=== PATIENT | male | born 1955 | race Caucasian/White ===

== ENCOUNTER 2024-04-01 09:53 | Emergency (ER) | payer MEDICARE, OTHER, SELFPAY ==
[2024-04-01 09:56] VITALS: BP 141/81; PULSE 67; RESP 18; TEMP 36.6; O2SAT 94; BMI 33.5
--- NOTE | 2024-04-01 11:09 | ED.EYEPROB ---
HPI - Eye Problem General Date Seen: 04/01/24 Chief complaint: Eye Problems Stated complaint: Cataract burst R eye Time Seen by Provider: 04/01/24 10:35 Source: patient Mode of arrival: ambulatory Limitations: no limitations History of Present Illness HPI Narrative: Patient is a 68-year-old gentleman who at approximately 7:30 a.m. this morning developed visual changes in his right eye, he looked out on the morning son, felt that the eye became blurry. And now he notes that vision no he is able to read through this. Is more blurry than normally almost feels like there is something moving around like a floater or hair within his eye. Does not tell me he has lost any visual of areas such as blackness or anything with this. It just feels like there is something with his eye as he looks around it clearly moves. No pain associated with this, he has never before had this he does not were contacts but he does were glasses there is no chance he got anything in his eye, as he feels that he was fine when he got up. Denies a history of glaucoma, headaches, numbness tingling or weakness or any other symptoms. No history of cardiovascular her previous CVAs. No history of diabetes, no history of high blood pressure. Does have a mild history of reactive airway disease in [facility], and [facility] recommended that he came to the the emergency department to get seen. Thinks it is somewhat improved since this occurred. But only slightly. chief complaint: vision change Onset (ago): hour(s) Onset description: sudden Duration: improved Location: right eye Eye Symptoms: decreased vision and blurry vision Place: home Mechanism: none Severity: moderate Associated symptoms: none Treatments Prior to Arrival: none Related Data Patient tetanus UTD: Yes Home Medications ?Medication ?Instructions ?Recorded ?Confirmed albuterol 04/01/24 montelukast 04/01/24 Allergies Allergy/AdvReac Type Severity Reaction Status Date / Time No Known Drug Allergies Allergy Verified 04/01/24 10:01 Review of Systems Status of ROS: Reports: 10 or more systems reviewed and unremarkable except as noted in History and below [facility] Social History Smoking Status: Never smoker How often do you have a drink containing alcohol: never AUDIT-C Alcohol total score: 0 Non-prescribed substance use: denies use Exam Narrative: Exam Narrative: Patient is seen in room 4 he is in no apparent distress, speaking to me normally, cranial nerves 3-12 are normal extraocular muscles are normal, no swelling is noted around his right eye, there is no redness, he has no icterus. Pupils are equal round reactive to light, good consensual respond, right eye visual acuity is 20 40, left eye is 20/100 visual najera are normal on gross testing here. I am really unable to see the anterior of his eye very well due to the size of his pupils, without a dilated exam, there is clearly no photophobia, on again closes I am press on the globe there is clearly no tenderness, or any inequality between perceived pressures in either eye. No tenderness along temporal arteries bilaterally, carotid upstrokes are equal bilaterally, there is no bruits. Const: Vital Signs, click to edit/add: Vital Signs - 24 hr 04/01/24 09:56 Temperature 97.9 F Pulse Rate [Pulse Oximeter] 67 Respiratory Rate 18 Blood Pressure [Ri ght Upper Arm] 141/81 H Pulse Oximetry 94 Oxygen Delivery Me thod Room Air Documenting provider has reviewed patient's vital signs: yes Course Vital Signs Vital signs: Initial Vital Signs Temperature 97.9 F 04/01/24 09:56 Temperature Source Temporal Artery Scan 04/01/24 09:56 Pulse Rate 67 04/01/24 09:56 Respiratory Rate 18 04/01/24 09:56 Blood Pressure 141/81 H 04/01/24 09:56 Blood Pressure Mean 101 04/01/24 09:56 Blood Pressure Position Sitting 04/01/24 09:56 Pulse Oximetry 94 04/01/24 09:56 Oxygen Delivery Method Room Air 04/01/24 09:56 Vital Signs Temperature 97.9 F 04/01/24 09:56 Pulse Rate 67 04/01/24 09:56 Respiratory Rate 18 04/01/24 09:56 Blood Pressure 141/81 H 04/01/24 09:56 Pulse Oximetry 94 04/01/24 09:56 Oxygen Delivery Method Room Air 04/01/24 09:56 Temperature 97.9 F 04/01/24 09:56 Pulse Rate 67 04/01/24 09:56 Respiratory Rate 18 04/01/24 09:56 Blood Pressure 141/81 H 04/01/24 09:56 Pulse Oximetry 94 04/01/24 09:56 Oxygen Delivery Method Room Air 04/01/24 09:56 MDM - Eye Problem MDM Narrative Medical decision making narrative: Multiple diagnosis are entertain such as foreign body, corneal abrasion, ulcer, amaurosis fugax, dislocation of lens, diabetic issues Given above findings, I think had dilated examination by the auditing clerk/television presenter is needed, I recommended that we send him over to [facility], for this examination. He is in agreement. He will be discharged from the emergency room, I do think this is low risk for amaurosis fugax, as he has no cardiovascular history, I do not think this is related to possible temporal arteritis. Medical Records Attestation: I reviewed the patient's medical records. Discharge Plan Discharge Clinical Impression: Vision changes Patient Disposition: Home, Self-Care Instructions: Blurred Vision (ED) Additional Instructions: home,and followup with Optometry for dilated fundal check of the right eye, at [facility]. Appt at 11:20 am Activity Level: Light activity Prescriptions: No Action albuterol montelukast Follow Up/Referrals: Binh Xiong MD [Primary Care Provider] - Stand Alone Forms: [employer] Info Instructions
== END 2024-04-01 13:54 | disposition home or self-care (01) ==
LOC: ED 11:16
PROVIDERS: Emergency Provider Family Medicine
DX: H53.9 Unspecified visual disturbance (principal)
CPT/HCPCS: 99283; 99284